=== PATIENT | female | born 1960 | race Caucasian/White ===

== ENCOUNTER 2023-04-14 08:32 | Day surgery (SDC) | payer BC ==
[~2023-04-14 08:32] MED LIST: Lactated Ringers 1,000 ML IV SCH; Sodium Chloride 0.9% 10 ML Syringe FLUSH PRN; Sodium Chloride 0.9% 2.5 ML Syringe FLUSH PRN; Sodium Chloride 0.9% 20 ML SDV IV PRN
[2023-04-14] MEDS ORDERED: Lidocaine 2% 5 ML SDV ONE (13:04)
[2023-04-14] MEDS ORDERED: Propofol 200 MG/20 ML SDV ONE (13:04)
[2023-04-14] MEDS ORDERED: Lactated Ringers 1,000 ML IV SCH (13:45)
[2023-04-14 14:04] VITALS: BP 138/90; PULSE 58
== END 2023-04-14 14:20 | disposition home or self-care (01) ==
LOC: MW.SDS 08:32
PROVIDERS: ATTEND Surgery
DX: Z12.11 Encounter for screening for malignant neoplasm of colon (principal); D12.2 Benign neoplasm of ascending colon; F41.9 Anxiety disorder, unspecified; F32.A Depression, unspecified; E03.9 Hypothyroidism, unspecified; E66.9 Obesity, unspecified; Z79.899 Other long term (current) drug therapy; Z98.890 Other specified postprocedural states; Z68.34 Body mass index [BMI] 34.0-34.9, adult
CPT/HCPCS: 45380; J2704; J7120; J3490